=== PATIENT | female | born 1975 | race Hispanic/Latino ===

== ENCOUNTER 2019-03-04 09:35 | Emergency (ER) | payer SELFPAY ==
--- OUTSIDE RECORDS SUMMARY | 2019-03-04 09:38 | XMS REPORT ---
Author Author [facility] Address Unknown Phone Unavailable Care Team Providers Care [employer] Name Role Phone Unavailable Unavailable Payers Payer Name Policy Type Policy Number Effective Date Expiration Date Problems This patient has no known problems. Allergies, Adverse Reactions, Alerts Allergy Name Allergy Type Status Severity Reaction(s) Onset Date Inactive Date Treating Clinician Comments No Known Allergies DA Active U 2018-07-14 00:00:00 No Known Allergies DA Active U 2018-04-14 00:00:00 No Known Allergies DA Active U 2015-08-09 00:00:00 Medications This patient has no known medications. Encounters Start Date/Time End Date/Time Encounter Type Admission Type Attending Clinicians Care Facility Care Department Encounter ID 2016-11-24 00:00:00 2016-11-25 00:00:[address] [facility] [id number] Results Test Description Test Time Test Comments Text Results Atomic Results Result Comments - XR KNEE 3 V LT 2018-10-11 09:00:00 Name: GARCIA ZAMORARYLIE CAROLINAISE [facility] : 1975 Age/S:43 /F [address] [facility] Unit#:[id number] [place]: [place] [address] Phys: Derick Cortes MD Dis Date: PHONE #: [phone] Status: REG ER FAX #: [phone] Exam Date: 10/11/2018 Reason: knee pain, anterior EXAMS: CPT CODE: [id number] XR KNEE 3 V LT 81752 TECHNIQUE - XR KNEE 3 V LT . COMPARISON: None provided. HISTORY: 43 years Female knee pain, anterior FINDINGS: Bones: No acute fracture. No dislocation. No suspicious bone lesion. Joints: No osteophytes. No joint space reduction. No subchondral bone lesions. No bony erosions. Soft tissues: No significant abnormalities. Other: None. IMPRESSION: No acute fracture. at 0900 Reported and signed by: Pete Liu M.D. CC: Derick Cortes MD Technologist: Joanne Huizar Trnscrpt Data: 10/11/2018 (09) [email or web address] Orig Print D/T: S: 10/11/2018 (0904) PAGE 1 Signed Report - XR CHEST 2 V 2018-07-14 16:13:00 Name: RAMON ZAMORA [facility] : 1975 Age/S:43 /F [address] [facility] Unit#:[id number] Loc: [place] [address] Phys: Cj Martinez MD Dis Date: PHONE #: [phone] Status: [facility] ER FAX #: [phone] Exam Date: 07/14/2018 Reason: cough EXAMS: CPT CODE: [id number] XR CHEST 2 V 92986 REASON FOR EXAM: cough Exam Order Date: 07/14/2018 12:07 PM Ordering MCarmen: Cj Martinez MD PROCEDURE: - XR CHEST 2 V COMPARISON: FINDINGS: PA and lateral views of the chest show clear lungs. No evidence of consolidation. No evidence of effusion. The heart size is minimally enlarged. Pulmonary vasculatures are unremarkable. The osseous structures are grossly intact. The thoracic aorta is tortuous. Enlargement of the pu lmonary vessels noted suggestive of possible pulmonary arterial hypertension IMPRESSION: Minimal cardiomegaly and prominent pulmonary vessels suggestive of pulmonary arterial hypertension at 1613 Reported and signed by: Medardo Luu M.D. CC: Cj Martinez MD Technologist: SENAIT URENA, RT(R),CT Trnscrpt Data: 07/14/2018 (1613) [email or web address].RADHAL Orig Print D/T: S: 07/14/2018 (8203) PAGE 1 Signed Report - CT CHEST W/CONTRAST 2018-07-14 15:34:00 Name: RAMON ZAMORA [facility] : 1975 Age/S: 43 / F [address] [facility] Unit #: [id number] Loc: [place] [address] Phys: Cj Martinez MD Acct: [id number] Dis Date: Status: REG ER PHONE #: [phone] Exam Date: 07/14/2018 1422 FAX #: [phone] Reason: back pain+sob EXAMS: CPT CODE: [id number] CT CHEST W/CONTRAST 72912 REASON FOR EXAM: back pain+sob EXAM ORDER DATE: 07/14/2018 12:29 PM Ordering M.D.: Cj Martinez MD PROCEDURE: - CT CHEST W/CONTRAST COMPARISON: 03/22/2018 FINDINGS: CT images of the chest were obtained with IV contrast. Reconstructed sagittal and coronal images of the chest were provided for interpretation. Dose reduction techniques were applied. The heart size is within normal limits. No evidence of pericardial effusion There are 4 pseudoaneurysms identified. The first one locates within the aortic arch measured 2.2 cm in width. The second one is in the right anterior border of distal thoracic aorta measured 1.2 cm. The smallest one is in the distal thoracic aorta measured 0.9 cm. Additional 2 pseudoaneurysms of the distal thoracic/proximal abdominal aorta measuring 2.6 cm and 2.0 cm. No filling defect seen within the main or lobar pulmonary arteries to suggest pulmonary embolus No evidence of mediastinal or hilar adenopathy The lungs are clear. 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 Martinez was informed of the findings by telephone at 3:30 PM FOR INTERNAL CODING PURPOSES ONLY RESULT CODE: CVR at 1534 Reported and signed by: Medardo Luu M.D. CC: Cj Martinez MD Technologist:SENAIT URENA, RT(R),CT CTDI: DLP: Trnscb Date/Time: 07/14/2018 (1534) [email or web address] Orig Print D/T: S: 07/14/2018 (1538) CTDI: DLP: PAGE 1 Signed Report URINALYSIS COMPLETE 2018-07-14 14:17:00 UA COLOR (test code=COLU) YELLOW YELLOW UA APPEARANCE (test code=APPU) CLEAR CLEAR UA GLUCOSE DIPSTICK (test code=DGLUU) NORMAL mg/dL NEGATIVE UA BILIRUBIN DIPSTICK (test code=BILU) NEGATIVE mg/dL NEGATIVE UA KETONE DIPSTICK (test code=KETU) neg mg/dL NEGATIVE UA SPECIFIC GRAVITY (test code=SGU) 1.010 1.001-1.035 UA BLOOD DIPSTICK (test code=CAMELIA) 150 (3+) Jamison/uL NEGATIVE UA PH DIPSTICK (test code=ROSEY) 7.0 5.0-8.0 UA PROTEIN DIPSTICK (test code=PROU) 30 (1+) mg/dL Neg-15 UA UROBILINIOGEN DIPSTICK (test code=URO) norm mg/dL 0.0-0.2 UA NITRITE DIPSTICK (test code=GERTRUDE) NEGATIVE NEGATIVE UA LEUKOCYTE ESTERASE DIPSTICK (test code=LEUU) 25 (Trace) uL NEGATIVE UA WBC (test code=WBCU) 0-5 per HPF 0-5 IN SOME URINARY TRACT INFECTIONS THERE MAY NOT BE ENOUGHWBCs IN THE URINE TO TRIGGER AN AUTOMATIC (REFLEX) URINECULTURE. A SEPERATE ORDER FOR URINE CULTURE IS RECOMMENDEDIF THERE IS STRONG SUPPORT FOR A URINARY TRACT INFECTIONCLINICALLY. UA RBC (test code=RBCU) 0-3 per HPF 0-5 UA EPITHELIAL CELLS (test code=EPIU) Few (2-5/hpf) per HPF Few UA BACTERIA (test code=BACU) TRACE per HPF NONE Urine Source? Clean CatchUR HCG [id number] 14:17:00* Test Item Value Reference Range Comments UR HCG QUAL (test code=HCGQLU) NEGATIVE This HCGQL test is NOT applicable for MALE patients.Check with nurse about probable order error.If Tumor Marker Test needed, nurse should order test "HCGTU"(Test #[id number]) Urine Source? Clean CatchURINALYSIS [id number] 14:15:00* Test Item Value Reference Range Comments UA COLOR (test code=COLU) YELLOW YELLOW UA APPEARANCE (test code=APPU) CLEAR CLEAR UA GLUCOSE DIPSTICK (test code=DGLUU) NORMAL mg/dL NEGATIVE UA BILIRUBIN DIPSTICK (test code=BILU) NEGATIVE mg/dL NEGATIVE UA KETONE DIPSTICK (test code=KETU) neg mg/dL NEGATIVE UA SPECIFIC GRAVITY (test code=SGU) 1.010 1.001-1.035 UA BLOOD DIPSTICK (test code=CAMELIA) 150 (3+) Jamison/uL NEGATIVE UA PH DIPSTICK (test code=ROSEY) 7.0 5.0-8.0 UA PROTEIN DIPSTICK (test code=PROU) 30 (1+) mg/dL Neg-15 UA UROBILINIOGEN DIPSTICK (test code=URO) norm mg/dL 0.0-0.2 UA NITRITE DIPSTICK (test code=GERTRUDE) NEGATIVE NEGATIVE UA LEUKOCYTE ESTERASE DIPSTICK (test code=LEUU) 25 (Trace) uL NEGATIVE UA WBC (test code=WBCU) per HPF 0-5 Urine Source? Clean CatchUR HCG [id number] 14:15:00* Test Item Value Reference Range Comments UR HCG QUAL (test code=HCGQLU) NEGATIVE This HCGQL test is NOT applicable for MALE patients.Check with nurse about probable order error.If Tumor Marker Test needed, nurse should order test "HCGTU"(Test #[id number]) Urine Source? Clean CatchURINALYSIS [id number] 14:07:00* Test Item Value Reference Range Comments UA COLOR (test code=COLU) YELLOW YELLOW UA APPEARANCE (test code=APPU) CLEAR CLEAR UA GLUCOSE DIPSTICK (test code=DGLUU) NORMAL mg/dL NEGATIVE UA BILIRUBIN DIPSTICK (test code=BILU) NEGATIVE mg/dL NEGATIVE UA KETONE DIPSTICK (test code=KETU) neg mg/dL NEGATIVE UA SPECIFIC GRAVITY (test code=SGU) 1.010 1.001-1.035 UA BLOOD DIPSTICK (test code=CAMELIA) 150 (3+) Jamison/uL NEGATIVE UA PH DIPSTICK (test code=ROSEY) 7.0 5.0-8.0 UA PROTEIN DIPSTICK (test code=PROU) 30 (1+) mg/dL Neg-15 UA UROBILINIOGEN DIPSTICK (test code=URO) norm mg/dL 0.0-0.2 UA NITRITE DIPSTICK (test code=GERTRUDE) NEGATIVE NEGATIVE UA LEUKOCYTE ESTERASE DIPSTICK (test code=LEUU) 25 (Trace) uL NEGATIVE UA WBC (test code=WBCU) per HPF 0-5 Urine Source? Clean CatchUR HCG [id number] 14:07:00* Test Item Value Reference Range Comments UR HCG QUAL (test code=HCGQLU) Urine Source? Clean CatchCBC W/AUTO [id number] 13:12:00* Test Item Value Reference Range Comments WHITE BLOOD CELL (test code=WBC) 9.8 K/mm3 4.5-12.5 RED BLOOD CELL (test code=RBC) 4.43 mill/mm3 3.7-5.2 HEMOGLOBIN (test code=HGB) 9.4 gram/dL 11.5-15.5 HEMATOCRIT (test code=HCT) 31.9 % 36.0-46.0 MEAN CELL VOLUME (test code=MCV) 72.0 fL 80-98 MEAN CELL HGB (test code=MCH) 21.2 picogram 27.0-33.0 MEAN CELL HGB CONCETRATION (test code=MCHC) 29.5 gram/dL 33.0-36.0 RED CELL DISTRIBUTION WIDTH (test code=RDW) 16.3 % 11.6-16.2 RED CELL DISTRIBUTION WIDTH SD (test code=RDW-SD) 41.6 fL 39.1-52.0 PLATELET COUNT (test code=PLT) 365 K/mm3 150-450 MEAN PLATELET VOLUME (test code=MPV) 8.7 fL 6.7-11.0 NEUTROPHIL % (test code=NT%) 65.0 % 39.0-69.0 LYMPHOCYTE % (test code=LY%) 23.5 % 25.0-55.0 MONOCYTE % (test code=MO%) 10.6 % 0.0-10.0 EOSINOPHIL % (test code=EO%) 0.6 % 0.0-5.0 BASOPHIL % (test code=BA%) 0.3 % 0.0-1.0 NEUTROPHIL # (test code=NT#) 6.37 K/mm3 1.8-7.7 LYMPHOCYTE # (test code=LY#) 2.30 K/mm3 1.0-5.0 MONOCYTE # (test code=MO#) 1.04 K/mm3 0-0.8 EOSINOPHIL # (test code=EO#) 0.06 K/mm3 0.0-0.5 BASOPHIL # (test code=BA#) 0.03 K/mm3 0.0-0.2 MANUAL DIFF REQUIRED (test code=MDIFF) NO, ONLY SCAN NEEDED DIFFERENTIAL [id number] 13:12:00* Test Item Value Reference Range Comments STAIN ACCEPTABILITY (test code=STN ACCEPTABLE) STAIN ACCEPTABLE POLYCHROMASIA (test code=POLC) 2+ HYPOCHROMIA (test code=HYPO) 2+ ANISOCYTOSIS (test code=ANISO) 2+ MICROCYTOSIS (test code=MICR) 2+ TEAR DROP CELLS (test code=TEAR) 1+ STOMATOCYTES (test code=STO) 1+ MORPHOLOGY COMMENT (test code=MOC) PLATELET ESTIMATE (test code=PLTEST) ADEQUATE PLATELET MORPHOLOGY (test code=PLTMORPH) SIZE VARIABLE CBC W/AUTO [id number] 13:12:00* Test Item Value Reference Range Comments WHITE BLOOD CELL (test code=WBC) 9.8 K/mm3 4.5-12.5 RED BLOOD CELL (test code=RBC) 4.43 mill/mm3 3.7-5.2 HEMOGLOBIN (test code=HGB) 9.4 gram/dL 11.5-15.5 HEMATOCRIT (test code=HCT) 31.9 % 36.0-46.0 MEAN CELL VOLUME (test code=MCV) 72.0 fL 80-98 MEAN CELL HGB (test code=MCH) 21.2 picogram 27.0-33.0 MEAN CELL HGB CONCETRATION (test code=MCHC) 29.5 gram/dL 33.0-36.0 RED CELL DISTRIBUTION WIDTH (test code=RDW) 16.3 % 11.6-16.2 RED CELL DISTRIBUTION WIDTH SD (test code=RDW-SD) 41.6 fL 39.1-52.0 PLATELET COUNT (test code=PLT) 365 K/mm3 150-450 MEAN PLATELET VOLUME (test code=MPV) 8.7 fL 6.7-11.0 NEUTROPHIL % (test code=NT%) 65.0 % 39.0-69.0 LYMPHOCYTE % (test code=LY%) 23.5 % 25.0-55.0 MONOCYTE % (test code=MO%) 10.6 % 0.0-10.0 EOSINOPHIL % (test code=EO%) 0.6 % 0.0-5.0 BASOPHIL % (test code=BA%) 0.3 % 0.0-1.0 NEUTROPHIL # (test code=NT#) 6.37 K/mm3 1.8-7.7 LYMPHOCYTE # (test code=LY#) 2.30 K/mm3 1.0-5.0 MONOCYTE # (test code=MO#) 1.04 K/mm3 0-0.8 EOSINOPHIL # (test code=EO#) 0.06 K/mm3 0.0-0.5 BASOPHIL # (test code=BA#) 0.03 K/mm3 0.0-0.2 MANUAL DIFF REQUIRED (test code=MDIFF) NO, ONLY SCAN NEEDED DIFFERENTIAL [id number] 13:12:00* Test Item Value Reference Range Comments STAIN ACCEPTABILITY (test code=STN ACCEPTABLE) STAIN ACCEPTABLE POLYCHROMASIA (test code=POLC) 2+ HYPOCHROMIA (test code=HYPO) 2+ ANISOCYTOSIS (test code=ANISO) 2+ MICROCYTOSIS (test code=MICR) 2+ TEAR DROP CELLS (test code=TEAR) 1+ STOMATOCYTES (test code=STO) 1+ PLATELET ESTIMATE (test code=PLTEST) ADEQUATE PLATELET MORPHOLOGY (test code=PLTMORPH) SIZE VARIABLE COMPREHENSIVE METABOLIC [id number] 13:04:00* Test Item Value Reference Range Comments SODIUM (test code=NA) 139 mmol/L 135-148 POTASSIUM (test code=K) 3.3 mmol/L 3.5-5.1 CHLORIDE (test code=CL) 103 mmol/L 101-109 CARBON DIOXIDE (test code=CO2) 25.9 mmol/L 21-32 ANION GAP (test code=GAP) 13 mmol/L 10-20 GLUCOSE (test code=GLU) 107 mg/dL 74-106 BLOOD UREA NITROGEN (test code=BUN) 12 mg/dL 3-21 CREATININE (test code=CREAT) 0.83 mg/dL 0.55-1.3 BUN/CREATININE RATIO (test code=BUN/CREA) 14.5 10-20 TOTAL PROTEIN (test code=PROT) 8.7 g/dL 6.5-8.4 ALBUMIN (test code=ALB) 3.1 g/dL 3.4-4.8 GLOBULIN (test code=GLOB) 5.6 G/DL 1-10 ALBUMIN/GLOBULIN RATIO (test code=A/G) 0.6 RATIO 0.75-1.50 CALCIUM (test code=CA) 10.4 mg/dL 8.4-10.2 BILIRUBIN TOTAL (test code=BILT) 0.60 mg/dL 0.0-1.0 SGOT/AST (test code=AST) 19 U/L 6-32 SGPT/ALT (test code=ALT) 16 U/L 12-78 Note: Change in REFERENCE RANGE due to new reagent method. ALKALINE PHOSPHATASE TOTAL (test code=ALKP) 80 U/L 38-126 [id number] 13:04:00* Test Item Value Reference Range Comments TROPONIN-I (test code=TROPI) 0.03 ng/mL 0.00-0.056 B-TYPE NATRIURETIC [id number] 13:00:00* Test Item Value Reference Range Comments B-TYPE NATRIURETIC PEPTIDE (test code=BNP) 405 pg/mL 0-100 THYROID STIMULATING [id number] 12:59:00* Test Item Value Reference Range Comments THYROID STIMULATING HORMONE (test code=TSH) 1.59 uIU/mL 0.36-3.74 TSH REFERENCE RANGES: EUTHYROID: 0.4 - 4.3 HYPO : >7.6 HYPER : <0.1 LACTIC [id number] 12:54:00* Test Item Value Reference Range Comments LACTIC ACID (test code=LACT) 1.2 MMOL/L 0.4-1.9 CBC W/AUTO [id number] 12:42:00* Test Item Value Reference Range Comments WHITE BLOOD CELL (test code=WBC) 9.8 K/mm3 4.5-12.5 RED BLOOD CELL (test code=RBC) 4.43 mill/mm3 3.7-5.2 HEMOGLOBIN (test code=HGB) 9.4 gram/dL 11.5-15.5 HEMATOCRIT (test code=HCT) 31.9 % 36.0-46.0 MEAN CELL VOLUME (test code=MCV) 72.0 fL 80-98 MEAN CELL HGB (test code=MCH) 21.2 picogram 27.0-33.0 MEAN CELL HGB CONCETRATION (test code=MCHC) 29.5 gram/dL 33.0-36.0 RED CELL DISTRIBUTION WIDTH (test code=RDW) 16.3 % 11.6-16.2 RED CELL DISTRIBUTION WIDTH SD (test code=RDW-SD) 41.6 fL 39.1-52.0 PLATELET COUNT (test code=PLT) 365 K/mm3 150-450 MEAN PLATELET VOLUME (test code=MPV) 8.7 fL 6.7-11.0 NEUTROPHIL % (test code=NT%) 65.0 % 39.0-69.0 LYMPHOCYTE % (test code=LY%) 23.5 % 25.0-55.0 MONOCYTE % (test code=MO%) 10.6 % 0.0-10.0 EOSINOPHIL % (test code=EO%) 0.6 % 0.0-5.0 BASOPHIL % (test code=BA%) 0.3 % 0.0-1.0 NEUTROPHIL # (test code=NT#) 6.37 K/mm3 1.8-7.7 LYMPHOCYTE # (test code=LY#) 2.30 K/mm3 1.0-5.0 MONOCYTE # (test code=MO#) 1.04 K/mm3 0-0.8 EOSINOPHIL # (test code=EO#) 0.06 K/mm3 0.0-0.5 BASOPHIL # (test code=BA#) 0.03 K/mm3 0.0-0.2 MANUAL DIFF REQUIRED (test code=MDIFF) NO, ONLY SCAN NEEDED DIFFERENTIAL [id number] 12:42:00* Test Item Value Reference Range Comments STAIN ACCEPTABILITY (test code=STN ACCEPTABLE) CABOT RINGS (test code=CAB) MORPHOLOGY COMMENT (test code=MOC) PLATELET ESTIMATE (test code=PLTEST) PLATELET MORPHOLOGY (test code=PLTMORPH) CBC W/AUTO [id number] 12:42:00* Test Item Value Reference Range Comments WHITE BLOOD CELL (test code=WBC) 9.8 K/mm3 4.5-12.5 RED BLOOD CELL (test code=RBC) 4.43 mill/mm3 3.7-5.2 HEMOGLOBIN (test code=HGB) 9.4 gram/dL 11.5-15.5 HEMATOCRIT (test code=HCT) 31.9 % 36.0-46.0 MEAN CELL VOLUME (test code=MCV) 72.0 fL 80-98 MEAN CELL HGB (test code=MCH) 21.2 picogram 27.0-33.0 MEAN CELL HGB CONCETRATION (test code=MCHC) 29.5 gram/dL 33.0-36.0 RED CELL DISTRIBUTION WIDTH (test code=RDW) 16.3 % 11.6-16.2 RED CELL DISTRIBUTION WIDTH SD (test code=RDW-SD) 41.6 fL 39.1-52.0 PLATELET COUNT (test code=PLT) 365 K/mm3 150-450 MEAN PLATELET VOLUME (test code=MPV) 8.7 fL 6.7-11.0 NEUTROPHIL % (test code=NT%) 65.0 % 39.0-69.0 LYMPHOCYTE % (test code=LY%) 23.5 % 25.0-55.0 MONOCYTE % (test code=MO%) 10.6 % 0.0-10.0 EOSINOPHIL % (test code=EO%) 0.6 % 0.0-5.0 BASOPHIL % (test code=BA%) 0.3 % 0.0-1.0 NEUTROPHIL # (test code=NT#) 6.37 K/mm3 1.8-7.7 LYMPHOCYTE # (test code=LY#) 2.30 K/mm3 1.0-5.0 MONOCYTE # (test code=MO#) 1.04 K/mm3 0-0.8 EOSINOPHIL # (test code=EO#) 0.06 K/mm3 0.0-0.5 BASOPHIL # (test code=BA#) 0.03 K/mm3 0.0-0.2 MANUAL DIFF REQUIRED (test code=MDIFF) NO, ONLY SCAN NEEDED DIFFERENTIAL [id number] 12:42:00* Test Item Value Reference Range Comments STAIN ACCEPTABILITY (test code=STN ACCEPTABLE) MORPHOLOGY COMMENT (test code=MOC) PLATELET ESTIMATE (test code=PLTEST) PLATELET MORPHOLOGY (test code=PLTMORPH) CBC W/AUTO [id number] 12:42:00* Test Item Value Reference Range Comments WHITE BLOOD CELL (test code=WBC) 9.8 K/mm3 4.5-12.5 RED BLOOD CELL (test code=RBC) 4.43 mill/mm3 3.7-5.2 HEMOGLOBIN (test code=HGB) 9.4 gram/dL 11.5-15.5 HEMATOCRIT (test code=HCT) 31.9 % 36.0-46.0 MEAN CELL VOLUME (test code=MCV) 72.0 fL 80-98 MEAN CELL HGB (test code=MCH) 21.2 picogram 27.0-33.0 MEAN CELL HGB CONCETRATION (test code=MCHC) 29.5 gram/dL 33.0-36.0 RED CELL DISTRIBUTION WIDTH (test code=RDW) 16.3 % 11.6-16.2 RED CELL DISTRIBUTION WIDTH SD (test code=RDW-SD) 41.6 fL 39.1-52.0 PLATELET COUNT (test code=PLT) 365 K/mm3 150-450 MEAN PLATELET VOLUME (test code=MPV) 8.7 fL 6.7-11.0 NEUTROPHIL % (test code=NT%) 65.0 % 39.0-69.0 LYMPHOCYTE % (test code=LY%) 23.5 % 25.0-55.0 MONOCYTE % (test code=MO%) 10.6 % 0.0-10.0 EOSINOPHIL % (test code=EO%) 0.6 % 0.0-5.0 BASOPHIL % (test code=BA%) 0.3 % 0.0-1.0 NEUTROPHIL # (test code=NT#) 6.37 K/mm3 1.8-7.7 LYMPHOCYTE # (test code=LY#) 2.30 K/mm3 1.0-5.0 MONOCYTE # (test code=MO#) 1.04 K/mm3 0-0.8 EOSINOPHIL # (test code=EO#) 0.06 K/mm3 0.0-0.5 BASOPHIL # (test code=BA#) 0.03 K/mm3 0.0-0.2 MANUAL DIFF REQUIRED (test code=MDIFF) NO, ONLY SCAN NEEDED DIFFERENTIAL [id number] 12:42:00* Test Item Value Reference Range Comments STAIN ACCEPTABILITY (test code=STN ACCEPTABLE) MORPHOLOGY COMMENT (test code=MOC) PLATELET ESTIMATE (test code=PLTEST) PLATELET MORPHOLOGY (test code=PLTMORPH) CBC W/AUTO [id number] 12:42:00* Test Item Value Reference Range Comments WHITE BLOOD CELL (test code=WBC) 9.8 K/mm3 4.5-12.5 RED BLOOD CELL (test code=RBC) 4.43 mill/mm3 3.7-5.2 HEMOGLOBIN (test code=HGB) 9.4 gram/dL 11.5-15.5 HEMATOCRIT (test code=HCT) 31.9 % 36.0-46.0 MEAN CELL VOLUME (test code=MCV) 72.0 fL 80-98 MEAN CELL HGB (test code=MCH) 21.2 picogram 27.0-33.0 MEAN CELL HGB CONCETRATION (test code=MCHC) 29.5 gram/dL 33.0-36.0 RED CELL DISTRIBUTION WIDTH (test code=RDW) 16.3 % 11.6-16.2 RED CELL DISTRIBUTION WIDTH SD (test code=RDW-SD) 41.6 fL 39.1-52.0 PLATELET COUNT (test code=PLT) 365 K/mm3 150-450 MEAN PLATELET VOLUME (test code=MPV) 8.7 fL 6.7-11.0 NEUTROPHIL % (test code=NT%) 65.0 % 39.0-69.0 LYMPHOCYTE % (test code=LY%) 23.5 % 25.0-55.0 MONOCYTE % (test code=MO%) 10.6 % 0.0-10.0 EOSINOPHIL % (test code=EO%) 0.6 % 0.0-5.0 BASOPHIL % (test code=BA%) 0.3 % 0.0-1.0 NEUTROPHIL # (test code=NT#) 6.37 K/mm3 1.8-7.7 LYMPHOCYTE # (test code=LY#) 2.30 K/mm3 1.0-5.0 MONOCYTE # (test code=MO#) 1.04 K/mm3 0-0.8 EOSINOPHIL # (test code=EO#) 0.06 K/mm3 0.0-0.5 BASOPHIL # (test code=BA#) 0.03 K/mm3 0.0-0.2 MANUAL DIFF REQUIRED (test code=MDIFF) NO, ONLY SCAN NEEDED DIFFERENTIAL [id number] 12:42:00* Test Item Value Reference Range Comments STAIN ACCEPTABILITY (test code=STN ACCEPTABLE) CABOT RINGS (test code=CAB) MORPHOLOGY COMMENT (test code=MOC) PLATELET ESTIMATE (test code=PLTEST) PLATELET MORPHOLOGY (test code=PLTMORPH)
[2019-03-04 10:37] LABS: BASOPHILS % 0.3 % (0.0-1.0); EOSINOPHILS % 0.5 % (0.0-6.0); HEMATOCRIT 35.9 % (34.2-44.1); HEMOGLOBIN 10.1 g/dL (12.0-16.0); LYMPHOCYTES # (AUTO) 2.7 (1.0-3.2); LYMPHOCYTES % 30.2 % (18.0-39.1); MEAN CORPUSCULAR HEMOGLOBIN 19.1 pg (28-32); MEAN CORPUSCULAR HGB CONC 28.1 g/dL (31-35); MEAN CORPUSCULAR VOLUME 67.7 fL (81-99); MONOCYTES # (AUTO) 0.6 (0.2-0.8); MONOCYTES % 6.9 % (4.4-11.3); NEUTROPHILS # (AUTO) 5.4 (2.1-6.9); NEUTROPHILS % 61.5 % (38.7-80.0); PLATELET COUNT 361 x10e3/uL (140-360)
[2019-03-04 10:53] LABS: STREPTOCOCCUS GRP A ANTIGEN NEGATIVE (NEGATIVE)
[2019-03-04 10:58] LABS: INFLUENZAE A&B ANTIGEN (RAPID) NEGATIVE (NEGATIVE)
[2019-03-04] MEDS ORDERED: ALBUTEROL/IPRATROPIUM 3 ML NEB NEB SCH (11:00)
[2019-03-04] MEDS ORDERED: PREDNISONE 20 MG TAB PO ONE (11:00)
[2019-03-04 11:01] LABS: ALANINE AMINOTRANSFERASE 10 IU/L (0-55); ALBUMIN 3.4 g/dL (3.5-5.0); ALBUMIN/GLOBULIN RATIO 0.7 (0.8-2.0); ALKALINE PHOSPHATASE 76 IU/L (40-150); ANION GAP 10.6 mmol/L (8-16); BLOOD UREA NITROGEN 12 mg/dL (7-26); BUN/CREATININE RATIO 14 (6-25); CALCIUM 11.3 mg/dL (8.4-10.2); CARBON DIOXIDE 24 mmol/L (22-29); CHLORIDE 106 mmol/L (98-107); CREATINE KINASE 28 IU/L (29-168); CREATININE, SERUM 0.84 mg/dL (0.57-1.11); EST GLOMERULAR FILTRATION RATE > 60 ML/MIN (60-); GLUCOSE 108 mg/dL (74-118); POTASSIUM 3.6 mmol/L (3.5-5.1); SODIUM 137 mmol/L (136-145)
[2019-03-04 11:26] LABS: CREATINE KINASE MB < 1.00 ng/mL (0-4.3)
[2019-03-04] MEDS ORDERED: LISINOPRIL 2.5 MG TAB PO ONE (11:45)
[2019-03-04] MEDS ORDERED: METOPROLOL TARTRATE 25 MG TAB PO ONE (11:45)
[2019-03-04] MEDS ORDERED: HYDRALAZINE HCL 20 MG/ML VIAL IV ONE ×2 (12:15→12:45)
--- NOTE | 2019-03-04 13:10 | Diagnostic Imaging Report ---
EXAMINATION: CHEST 2 VIEWS INDICATION: Hypertension COMPARISON: None FINDINGS: LINES/TUBES:EKG leads overlie the chest. LUNGS:The lungs are well-inflated. There is bilateral central pulmonary vascular fullness. No focal consolidation or terrence edema. Basilar subsegmental atelectasis and scattered calcified granulomas. PLEURA:No pleural effusion or pneumothorax. MEDIASTINUM:The cardiomediastinal silhouette is mildly enlarged. There is bilateral hilar prominence, much of which is likely retrievable to perivascular enlargement. However, hilar lymphadenopathy is also possible. BONES/SOFT TISSUES:No acute osseous injury. ABDOMEN:No free air under the diaphragm. IMPRESSION: Mild cardiomegaly and central pulmonary vascular engorgement. Bilateral hilar prominence, possibly reflective of hilar lymphadenopathy. Signed by: Desmond Goldberg MD on 03/04/2019 1:07 PM
[2019-03-04 13:50] VITALS: BP 190/120
== END 2019-03-04 13:58 | disposition home or self-care (01) ==
LOC: ER 09:35
DX: R05 Cough (principal); J30.1 Allergic rhinitis due to pollen; I10 Essential (primary) hypertension; I51.7 Cardiomegaly; F17.210 Nicotine dependence, cigarettes, uncomplicated
CPT/HCPCS: 36415; 71046; 80053; 82550; 82553; 83518; 84484; 85025; 87070; 87400; 93005; 94640; 99284; J0360; J7512

== ENCOUNTER 2019-11-14 19:58 | Emergency (ER) | payer SELFPAY ==
[~2019-11-14] VITALS: Ht 160 cm; Wt 80.7 kg
[2019-11-14] MEDS ORDERED: ACETAMINOPHEN 325 MG TAB PO ONE (21:15)
--- NOTE | 2019-11-14 21:18 | Emergency Department Note ---
History of Present Illnes History of Present Illness Chief Complaint: COVID PUI History of Present Illness This is a 44 year old female PRESENTS WITH C/O FEVER, COUGH , BODY ACHES FOR PAST 6 DAYS, SEEN AT [facility] ON THURSDAY, HAD COVID TEST AND IS AWAITING RESULTS, STATES CAME TO ER TODAY BECAUSE SHE IS STILL RUNNING FEVER.. Arrival Mode: Car Onset (how long ago): day(s) (6) Location: ALL OVER Quality: BODY ACHES, COUGH, FEVER Severity: moderate Onset quality: gradual Duration (how long): day(s) (6) Progression: unchanged Chronicity: new Context: Reports recent illness Relieving factors: none Exacerbating factors: none Associated symptoms: Reports cough, Reports fever/chills, Reports other (BODY ACHES) Past Medical/Family History Physician Review I have reviewed the patient's past medical and family history. Any updates have been documented here. Past Medical History Past Medical History: Hypertension Past Surgical History: Cholecysctectomy Social History Smoking Cessation: Never Smoker Counseling Performed: No Alcohol Use: None Any Illegal Drug Use: No TB Exposure/Symptoms: No Physically hurt or threatened: No Other Last Tetanus: unknown Any Pre-Existing Lines (PICC,: No Is patient up to date on immun: No Last Flu: HAS NOT HAD Last Pneumovax: NOT APPLICABLE Review of Systems Review of Systems Constitutional: Reports as per HPI EENTM: Reports no symptoms Cardiovascular: Reports no symptoms Respiratory: Reports as per HPI Gastrointestinal: Reports no symptoms Genitourinary: Reports no symptoms Musculoskeletal: Reports no symptoms Integumentary: Reports no symptoms Neurological: Reports no symptoms Psychological: Reports no symptoms Endocrine: Reports no symptoms Hematological/Lymphatic: Reports no symptoms Physical Exam Related Data Allergies: Coded Allergies: No Known Allergies (Unverified , 03/04/19) Triage Vital Signs Vital Signs Date Time Temp Pulse Resp B/P (MAP) Pulse Ox O2 Delivery O2 Flow Rate FiO2 11/14/19 21:11 101.6 90 16 153/100 100 Vital signs reviewed: Yes Physical Exam CONSTITUTIONAL Constitutional: Present well-developed, Present well-nourished HENT HENT: Present normocephalic, Present atraumatic, Present oropharynx clear/moist, Present nose normal HENT L/R: Present left ext ear normal, Present right ext ear normal EYES Eyes: Reports PERRL, Reports conjunctivae normal NECK Neck: Present ROM normal PULMONARY Pulmonary: Present effort normal, Present breath sounds normal CARDIOVASCULAR Cardiovascular: Present regular rhythm, Present heart sounds normal, Present capillary refill normal, Present normal rate GASTROINTESTINAL Abdominal: Present soft, Present nontender, Present bowel sounds normal GENITOURINARY Genitourinary: Present exam deferred SKIN Skin: Present warm, Present dry MUSCULOSKELETAL Musculoskeletal: Present ROM normal NEUROLOGICAL Neurological: Present alert, Present oriented x 3, Present no gross motor or sensory deficits PSYCHOLOGICAL Psychological: Present mood/affect normal, Present judgement normal Results Imaging Imaging results reviewed: Yes Impressions Examination: Single AP view of the chest. COMPARISON: Chest 2 views 03/04/2019 INDICATION: Cough, fever, COVID symptoms IMPRESSION: 1. Lines and Tubes: None 2. Lungs are mildly hypoinflated. Bilateral predominantly perihilar interstitial opacities while this may represent interstitial edema/fluid overload, pneumonia (including viral) could be considered in the appropriate clinical setting. No effusion. 3. Stable enlargement of the cardiac silhouette. Central pulmonary vascular congestion with stable enlarged pulmonary arteries. 4. No acute bony abnormalities. Signed by: Dr. Tahir England M.D. on 11/14/2019 10:35 PM Assessment & Plan Medical Decision Making MDM PT WITH FEVER, COUGH, BODY ACHES WHO IS AWAITING COVID RESULTS FROM TEST SHE ALREADY HAD DONE CXR ORDERED TO EVAL FOR PNEUMONIA TYLENOL 975 MG PO ORDERED pt discharged with zpak pt to self quarantine until she gets her covid 19 test result Assessment & Plan Final Impression: (1) Viral syndrome (2) Viral pneumonia (3) Fever Depart Disposition: HOME, SELF-CARE Last Vital Signs Date Time Temp Pulse Resp B/P (MAP) Pulse Ox O2 Delivery O2 Flow Rate FiO2 11/14/19 21:11 101.6 90 16 153/100 100 Medications in the ED Acetaminophen 975 mg ONCE ONCE PO ; Start 11/14/19 at 21:15; Stop 11/14/19 at 21:16 RONEY SHEN MD Nov 14, 2019 21:18
--- NOTE | 2019-11-14 22:38 | Diagnostic Imaging Report ---
Examination: Single AP view of the chest. COMPARISON: Chest 2 views 03/04/2019 INDICATION: Cough, fever, COVID symptoms IMPRESSION: 1. Lines and Tubes: None 2. Lungs are mildly hypoinflated. Bilateral predominantly perihilar interstitial opacities while this may represent interstitial edema/fluid overload, pneumonia (including viral) could be considered in the appropriate clinical setting. No effusion. 3. Stable enlargement of the cardiac silhouette. Central pulmonary vascular congestion with stable enlarged pulmonary arteries. 4. No acute bony abnormalities. Signed by: Dr. Tahir England M.D. on 11/14/2019 10:35 PM
[2019-11-14 22:44] VITALS: BP 132/80
--- NOTE | 2019-11-15 03:24 | NUR ---
PATIENTS PHONE NUMBER NOT IN SERVICE, MESSAGE WAS LEFT WITH MOTHER-ARIK- REGARDING PATIENT RAMON TO PLEASE CALL US BACK SOON POSSIBLE
--- NOTE | 2019-11-15 03:32 | NUR ---
DR SHEN HAS GIVEN COVID POSITIVE RESULTS TO PATIENT VIA TELEPHONE AT THIS MOMENT.
== END 2019-11-14 23:26 | disposition home or self-care (01) ==
LOC: ER 19:58
DX: R50.9 Fever, unspecified (principal); R05 Cough; U07.1 COVID-19; J12.89 Other viral pneumonia; I10 Essential (primary) hypertension
CPT/HCPCS: 71045; 87635; 99283

== ENCOUNTER 2021-05-26 14:24 | Emergency (ER) | payer SELFPAY ==
[~2021-05-26] VITALS: Ht 157.5 cm; Wt 81.6 kg
[2021-05-26] MEDS ORDERED: CLONIDINE HCL 0.2 MG TAB PO STA (17:15)
[2021-05-26] MEDS ORDERED: OXYMETAZOLINE HCL 0.05% NAS 1 SPRAY BTL ONE (17:15)
[2021-05-26] MEDS ORDERED: OXYMETAZOLINE HCL 0.05% NAS 1 SPRAY BTL STA (17:15)
[2021-05-26] MEDS ORDERED: PREDNISONE20 MG PO (17:26)
[2021-05-26] MEDS ORDERED: CLONIDINE HCL 0.2 MG TAB ONE (17:32)
== END 2021-05-26 18:30 | disposition home or self-care (01) ==
LOC: ER 14:33
DX: R04.0 Epistaxis (principal); I10 Essential (primary) hypertension
CPT/HCPCS: 99283